=== PATIENT | female | born 1975 | race Caucasian/White ===

== ENCOUNTER 2016-09-07 09:00 | Day surgery (SDC) | payer OTHER ==
[2016-09-07] VITALS (11 sets, daily range): BP systolic 87–116; BP diastolic 48–76; PULSE 51–77; TEMP 97.7–97.9
[~2016-09-07] VITALS: Ht 154.9 cm; Wt 79.4 kg
[2016-09-07] MEDS ORDERED: GLUCOPHAGE500 MG/TAB PO (09:28)
[2016-09-07] MEDS ORDERED: CLARITIN 1010 MG/TAB PO (09:28)
[2016-09-07] MEDS ORDERED: VITAMIN D32000 IU PO (09:28)
== END 2016-09-07 14:15 | disposition home or self-care (01) ==
LOC: SDCO 09:00
DX: Z12.11 Encounter for screening for malignant neoplasm of colon (principal); K64.1 Second degree hemorrhoids; E11.9 Type 2 diabetes mellitus without complications; Z80.0 Family history of malignant neoplasm of digestive organs
CPT/HCPCS: J2250; J2405; J2550; J3010; J7030